=== PATIENT | male | born 1975 | race Caucasian/White ===

== ENCOUNTER 2017-10-04 02:29 | Inpatient (IN) ==
[2017-10-04] MEDS ORDERED: HYDROmorphone 2 MG/1 ML VIAL IV PRN (05:03)
[2017-10-04] MEDS ORDERED: ALBUTEROL 2.5 MG/3 ML NEB RESP TX PRN (05:03)
[2017-10-04] MEDS ORDERED: ACETAMINOPHEN 325 MG TABLET PO PRN (05:03)
[2017-10-04] MEDS ORDERED: ONDANSETRON 4 MG/2 ML VIAL IV PRN (05:03)
[2017-10-04] MEDS: SODIUM CHLORIDE 0.9% 1,000 ML IV SCH ×3 (05:24→23:39)
[2017-10-04 05:58] LABS: PT Patient Result 10.7 SECS
[2017-10-04 05:59] LABS: Lactic Acid 1.1 MMOL/L (0.4-2.0)
[2017-10-04 06:25] LABS: Albumin 3.8 G/DL (3.4-5.0); Calcium 10.3 MG/DL (8.5-10.1); Osmolality,Calculated 277.4 MOS/KG (273-304); Phosphorous 3.5 MG/DL (2.5-4.9); Potassium 3.7 MMOL/L (3.5-5.1)
[2017-10-04] MEDS: PIPERACILLIN/TAZOBACTAM 3,375 MG in SODIUM CHLORIDE 0.9% 100 ML IV SCH ×3 (06:30→23:40)
[2017-10-04] MEDS: metroNIDAZOLE INJ 500 MG in PREMIX 1 EACH IV SCH ×3 (07:59→20:43)
[2017-10-04] MEDS: MONTELUKAST 10 MG TABLET PO SCH (08:00)
[2017-10-04] MEDS: CETIRIZINE 10 MG TABLET PO SCH (08:00)
[2017-10-04] MEDS: PANTOPRAZOLE 40 MG VIAL IV SCH (08:00)
[2017-10-04] MEDS ORDERED: ENOXAPARIN 40 MG/0.4 ML SYRINGE SUBCUT SCH (21:28)
[2017-10-05] MEDS: metroNIDAZOLE INJ 500 MG in PREMIX 1 EACH IV SCH (04:22)
[2017-10-05] MEDS: SODIUM CHLORIDE 0.9% 1,000 ML IV SCH (04:24)
[2017-10-05 04:46] LABS: Basophils # 0.1 10*3/uL (0.0-0.2); Basophils % 0.8 % (0.0-0.8); Eosinophils # 0.2 10*3/uL (0.0-0.87); Eosinophils % 2.5 % (0.00-10.9); Hematocrit 41.6 VOL% (42.0-52.0); Hemoglobin 14.7 GM/DL (14.0-18.0); Immature Granulocytes % 0.2 %; Immature Granulocytes Absolute 0.01 #; Lymphocytes # 2.2 10*3/uL (1.4-4.0); Lymphocytes % 34.6 % (21.2-54.2); Mean Corpuscular HGB Conc 35.3 GM/DL (32-36); Mean Corpuscular Hemoglobin 31 PG (27-34); Mean Corpuscular Volume 88.1 FL (87-102); Mean Platelet Volume 10.4 FL (9.6-12.0); Monocytes # 0.7 10*3/uL (0.11-0.8); Monocytes % 10.2 % (1.7-12.7); Neutrophils # 3.3 10*3/uL (1.4-7.4); Neutrophils % 51.7 % (38.7-73.9); Platelet Count 183 T/CUMM (130-400); Red Blood Count 4.72 MC/CUMM (3.8-5.5); Red Cell Distribution Width 12.7 % (9.3-17.3); White Blood Count 6.5 T/CUMM (4-12)
[2017-10-05 05:35] LABS: Albumin 3.4 G/DL (3.4-5.0); Bilirubin,Total 1.2 MG/DL (0.2-1.0); Calcium 8.6 MG/DL (8.5-10.1); Magnesium 1.9 MG/DL (1.8-2.4); Osmolality,Calculated 278.3 MOS/KG (273-304); Potassium 3.6 MMOL/L (3.5-5.1); Total Protein 6.7 G/DL (6.4-8.3)
[2017-10-05 07:09] LABS: Apearance,Urine CLEAR (Clear); Bilirubin,Urine Negative (Negative); Blood, Urine Negative (Negative); Glucose,Urine (UA) Negative (Negative); Ketones,Urine Negative (Negative); Nitrite,Urine Negative (Negative); Protein,Urine 30 MG/DL; RBC,Urine <1 /HPF (0-4); Urine Color Yellow (Yellow); Urine Specific Gravity 1.006 (1.001-1.035); Urine Urobilinogen < 2.0 EU/DL (0.2-1.0); WBC,Urine 1 /HPF (0-6)
[2017-10-05] MEDS: PANTOPRAZOLE 40 MG VIAL IV SCH (08:20)
[2017-10-05] MEDS: PIPERACILLIN/TAZOBACTAM 3,375 MG in SODIUM CHLORIDE 0.9% 100 ML IV SCH (08:24)
[2017-10-05] MEDS ORDERED: TISSUE ADHESIVE 1 EACH APPLICATOR TOP ONE (09:37)
[2017-10-05] MEDS ORDERED: PROPOFOL 200 MG/20 ML VIAL IV ONE (11:12)
[2017-10-05] MEDS ORDERED: SEVOFLURANE 1 UNIT/15 MINUTE INH ONE (11:13)
[2017-10-05] MEDS ORDERED: KETOROLAC 30 MG/1 ML VIAL ONE (11:13)
[2017-10-05] MEDS ORDERED: ACETAMINOPHEN 1,000 MG/100 ML VIAL IV ONE (11:13)
[2017-10-05] MEDS ORDERED: NEOSTIGMINE 10 MG/10 ML VIAL ONE (11:13)
[2017-10-05] MEDS ORDERED: GLYCOPYRROLATE 0.4 MG/2 ML VIAL ONE (11:13)
[2017-10-05] MEDS ORDERED: DEXAMETHASONE 10 MG/1 ML VIAL ONE (11:13)
[2017-10-05] MEDS ORDERED: ONDANSETRON 4 MG/2 ML VIAL ONE (11:13)
[2017-10-05] MEDS ORDERED: SUCCINYLCHOLINE 200 MG/10 ML VIAL ONE (11:14)
[2017-10-05] MEDS ORDERED: LACTATED RINGERS 1,000 ML IV ONE (11:14)
[2017-10-05] MEDS ORDERED: ROCURONIUM 100 MG/10 ML VIAL IV ONE (11:14)
[2017-10-05 16:53] VITALS: BP 148/92
[2017-10-05] MEDS: MONTELUKAST 10 MG TABLET PO SCH (16:55)
[2017-10-05] MEDS: CETIRIZINE 10 MG TABLET PO SCH (16:55)
== END 2017-10-05 17:15 | disposition home or self-care (01) | DRG 419 ==
LOC: N.ED 02:29 → N.EDINP 03:25 → N.CC 04:08 → N.3E 10:02
PROVIDERS: ADMIT Surgery; ATTEND Surgery
PROC: LAPCHOL (2017-10-05 09:58)